=== PATIENT | female | born 2000 | race Caucasian/White ===

== ENCOUNTER → 2019-12-15 16:01 | Outpatient (BNVA) | payer OTHER, SELFPAY | PROVIDERS: Family Provider Family Medicine; PCP Family Medicine; Visit Provider Nurse Practitioner Women's Health | DX: Z12.4 Encounter for screening for malignant neoplasm of cervix (principal); Z30.41 Encounter for surveillance of contraceptive pills; Z32.00 Encounter for pregnancy test, result unknown | CPT/HCPCS: 81025; 88175 ==

== ENCOUNTER → 2020-01-02 13:04 | Outpatient (BNVA) | payer OTHER, SELFPAY | PROVIDERS: Family Provider Family Medicine; PCP Family Medicine; Visit Provider Obstetrics & Gynecology | DX: R10.31 Right lower quadrant pain (principal); Z30.431 Encounter for routine checking of intrauterine contraceptive device | CPT/HCPCS: 76830 ==

== ENCOUNTER 2022-12-19 16:08 | Outpatient (CLI) | payer OTHER, SELFPAY ==
[2022-12-19 16:08] VITALS: BMI 39.9
[2022-12-19 16:23] VITALS: BP 147/81; PULSE 69
[2022-12-19 16:43] VITALS: BP 132/72; PULSE 59
[2022-12-19 16:47] LABS: Nitrazine Paper, PH Negative
== END 2022-12-19 16:58 | disposition home or self-care (01) ==
LOC: OPOB 16:14 → OBGYN 16:15
PROVIDERS: PCP Family Medicine; Visit Provider Family Medicine
DX: O26.899 Other specified pregnancy related conditions, unspecified trimester (principal); Z3A.00 Weeks of gestation of pregnancy not specified; N89.8 Other specified noninflammatory disorders of vagina
CPT/HCPCS: 59025; 83986; 99211

== ENCOUNTER 2023-01-29 04:46 | Outpatient (CLI) | payer OTHER, SELFPAY ==
[2023-01-29] VITALS (19 sets, daily range): BP systolic 137–200; BP diastolic 64–94; PULSE 67–109; RESP 16–18; TEMP 36.3; BMI 43.9
[2023-01-29] MEDS: terbutaline 1 mg/mL INJ 0.25 MG SUBCUT ×2 (05:51→08:04)
[2023-01-29 05:54] LABS: Basophils % 0.4 %; Eosinophils # 0.2 10^3/uL (0.0-0.8); Eosinophils % 3.1 %; Hematocrit 41.1 % (36-47); Lymphocytes # 2.3 10^3/uL (0.8-4.8); Lymphocytes % 28.8 %; Mean Corpuscular Hemoglobin 32.7 pg (27-33); Mean Corpuscular Volume 93.4 fl (85-98); Mean Platelet Volume 12.1 fL (7.4-10.4); Monocytes # 0.8 10^3/uL (0.2-0.9); Neutrophils # 4.47 10^3/uL (1.8-7.7); Neutrophils % 57.2 %; Nucleated Red Blood Cells % 0 %; Platelet Count 182 10^3/cmm (157-399); Red Cell Distribution Width 13.2 % (12.1-15.1); White Blood Count 7.81 10^3/uL (3.29-11.43)
[2023-01-29 06:09] LABS: Alanine Aminotransferase 17 U/L (0-33); Albumin Level 3.7 g/dL (3.5-5.2); Alkaline Phosphatase 80 U/L (35-105); Anion Gap 18.1 (5-19); Aspartate Amino Transferase 18 U/L (0-32); Blood Urea Nitrogen 8 mg/dL (6-20); Calcium 9.7 mg/dL (8.5-10.5); Carbon Dioxide 21 mmol/L (22-29); Chloride 104 mmol/L (98-107); Globulin 3.3 g/dL (1.3-4.6); Glomerular Filtration Rate 122.8 mL/min (90-130); Glucose 85 mg/dL (65-115); Osmolality Calculated 286 mOsm/kg (285-295); Potassium 4.1 mmol/L (3.5-5.1); Sodium 139 mmol/L (136-145); Total Bilirubin 0.2 mg/dL (0.15-1.2)
[2023-01-29 06:14] LABS: Bilirubin Urine Neg (Negative); Blood Urine 3+ (Negative); Glucose Urine UA Norm (Normal); Ketones Urine Negative (Negative); Leukocyte Esterase Urine Trace (Negative); Nitrate Urine Negative (Negative); Protein Urine Neg (Negative); Sulfosalicylic Acid Urine Negative (Negative); Urine Appearance Hazy (CLEAR); Urine Color Yellow (Yellow); Urobilinogen Urine Neg (Negative); pH Urine 8 (5-7)
[2023-01-29 06:15] LABS: Add Urine Culture? No; Add Urine Microscopic? YES; Bacteria Urine 1+ /hpf; RBC Urine 0-4 /hpf (0-2); Squamous Epithelial Cell Urine 15-25 /hpf (0-5)
[2023-01-29 06:22] LABS: Urine Creatinine 72 mg/dL (28-217); Urine Protein Random 19 mg/dL
[2023-01-29 06:24] LABS: UPRO/UCREAT Ratio 0.26 mg/mg CR
[2023-01-29] MEDS: propranolol 20 mg Tablet PO (06:38)
[2023-01-29] MEDS: lactated ringers 1,000 ML 999 ML IV (08:04)
[2023-01-29] MEDS: betamethasone susp 6 mg/mL 1 mL (per mL) 12 MG IM (09:48)
--- NOTE | 2023-01-30 10:34 | PM.OBTRLD ---
OB L&D Triage Visit Information: Date of evaluation: 01/29/23 Comments/Additional reason(s) for visit: Pt at 33w gestation presented c/o contractions starting at about 3 am. She drank a glass of water and rested but they continued and became more painful. No vaginal bleeding. No LOF. She does think she lost her mucus plug. Good movement Evaluation: Baseline heart rate: 140 Variability: Average (6-10) monitor accelerations: Present 15x15 monitor decelerations: None Laboratory results: Laboratory Tests 01/29/23 01/29/23 01/29/23 05:40 05:40 05:55 WBC 7.81 RBC 4.40 Hgb 14.40 Hct 41.1 MCV 93.4 MCH 32.7 MCHC 35.0 RDW 13.2 Plt Count 182 MPV 12.1 H Neut % (Auto) 57.2 Lymph % (Auto) 28.8 [place] % (Auto) 10.0 Eos % (Auto) 3.1 Baso % (Auto) 0.4 Neut # (Auto) 4.47 Lymph # (Auto) 2.3 [place] # (Auto) 0.8 Eos # (Auto) 0.2 Baso # (Auto) 0.0 Nucleated RBC % (a uto) 0 Nucleated RBCs # 0.0 Sodium 139 Potassium 4.1 Chloride 104 Carbon Dioxide 21 L Anion Gap 18.1 BUN 8 Creatinine 0.6 GFR Calculation 122.8 Glucose 85 Calculated Osmolal ity 286 Calcium 9.7 Total Bilirubin 0.2 AST 18 ALT 17 Alkaline Phosphata se 80 Total Protein 7.0 Albumin 3.7 Globulin 3.3 Urine Color Yellow Urine Appearance Hazy A Urine pH 8 H Ur Specific Gravit y 1.010 Urine Protein Neg Urine Glucose (UA) Norm Urine Ketones Negative Urine Blood 3+ H Urine Nitrate Negative Urine Bilirubin Neg Prot Sulfosalicyli c Acd Negative Urine Urobilinogen Neg Ur Leukocyte Falguni ase Trace H Urine RBC 0-4 H Urine WBC 5-10 H Ur Squamous Epith Cells 15-25 H Amorphous Sediment Not Reportable Urine Bacteria 1+ H U Random Total Pro tein Urine Creatinine Protein/Creatinin Ratio 01/29/23 05:55 WBC RBC Hgb Hct MCV MCH MCHC RDW Plt Count MPV Neut % (Auto) Lymph % (Auto) [place] % (Auto) Eos % (Auto) Baso % (Auto) Neut # (Auto) Lymph # (Auto) [place] # (Auto) Eos # (Auto) Baso # (Auto) Nucleated RBC % (a uto) Nucleated RBCs # Sodium Potassium Chloride Carbon Dioxide Anion Gap BUN Creatinine GFR Calculation Glucose Calculated Osmolal ity Calcium Total Bilirubin AST ALT Alkaline Phosphata se Total Protein Albumin Globulin Urine Color Urine Appearance Urine pH Ur Specific Gravit y Urine Protein Urine Glucose (UA) Urine Ketones Urine Blood Urine Nitrate Urine Bilirubin Prot Sulfosalicyli c Acd Urine Urobilinogen Ur Leukocyte Falguni ase Urine RBC Urine WBC Ur Squamous Epith Cells Amorphous Sediment Urine Bacteria U Random Total Pro tein 19 Urine Creatinine 72 Protein/Creatinin Ratio 0.26 Care Additional Care Information: The pt has some intermittent elevated BP's in the severe range. This was usually when she first came in or got up to the bathroom. Pt noted to be visibly anxious and even shaking by the nursing staff. PIH labs drawn and were not indicative of pre-eclampsia. She received 1 dose of terb that significantly reduced contractions for about an hour but then they returned. At that time she was given 1L bolus of fluids IV and another dose of terb. This stopped her contractions and she felt much better. Final Diagnosis Final Diagnosis (1) uterine contractions in third trimester, antepartum: Plan: resolved w terb and fluids. pt was instructed to drink at least 64 oz of water daily and also 24 oz of sports drink. she was given one dose of betamethasone and will return for the other tomorrow Status: Acute Code(s): O47.03 - False labor before 37 completed weeks of gestation, third trimester (2) induced hypertension, antepartum: Plan: at rest pressures are around 140. will hold off on BP medication at this time. her severely high readings resolve quickly and seem to be stress/anxiety related. Status: Acute Code(s): O13.9 - Gestational [-induced] hypertension without significant proteinuria, unspecified trimester Coding Level of Care Code Acute Code for Chg Fwd Diagnoses uterine contractions in third trimester, antepartum O47.03 induced hypertension, antepartum O13.9
== END 2023-01-29 09:40 | disposition home or self-care (01) ==
LOC: OPOB 04:55 → OBGYN 04:56
PROVIDERS: PCP Family Medicine; Visit Provider Family Medicine
DX: O47.03 False labor before 37 completed weeks of gestation, third trimester (principal); O13.9 Gestational [pregnancy-induced] hypertension without significant proteinuria, unspecified trimester; Z3A.37 37 weeks gestation of pregnancy
CPT/HCPCS: 36415; 59025; 80053; 81001; 82570; 84156; 85025; 96372; 99211; J0702; J3105; J7120

== ENCOUNTER 2023-01-30 09:07 | Outpatient (CLI) | payer OTHER, SELFPAY ==
[2023-01-30] MEDS: betamethasone susp 6 mg/mL 1 mL (per mL) 12 MG IM (09:21)
== END 2023-01-30 09:24 | disposition home or self-care (01) ==
PROVIDERS: Absent Provider Family Medicine; PCP Family Medicine; Visit Provider Family Medicine
DX: O26.899 Other specified pregnancy related conditions, unspecified trimester (principal); Z3A.00 Weeks of gestation of pregnancy not specified
CPT/HCPCS: 96372; J0702

== ENCOUNTER 2023-02-04 20:59 | Outpatient (CLI) | payer OTHER, SELFPAY ==
[2023-02-04] VITALS (11 sets, daily range): BP systolic 133–167; BP diastolic 67–90; PULSE 62–75; RESP 15; BMI 44.4
[2023-02-04 22:21] LABS: Basophils % 0.2 %; Eosinophils # 0.2 10^3/uL (0.0-0.8); Hematocrit 37.2 % (36-47); Lymphocytes # 2.1 10^3/uL (0.8-4.8); Lymphocytes % 25.2 %; Mean Corpuscular HGB Conc 34.7 g/dL (30-55); Mean Corpuscular Hemoglobin 32.7 pg (27-33); Mean Corpuscular Volume 94.2 fl (85-98); Mean Platelet Volume 12.4 fL (7.4-10.4); Monocytes # 0.7 10^3/uL (0.2-0.9); Monocytes % 8.5 %; Neutrophils # 5.16 10^3/uL (1.8-7.7); Neutrophils % 63.4 %; Nucleated Red Blood Cells % 0 %; Platelet Count 177 10^3/cmm (157-399); Red Blood Count 3.95 10^6/uL (3.85-5.65); Red Cell Distribution Width 13.3 % (12.1-15.1); White Blood Count 8.14 10^3/uL (3.29-11.43)
[2023-02-04 22:23] LABS: Add Urine Culture? No; Add Urine Microscopic? YES; Amorphous Sediment Urine 1+ /hpf; Bacteria Urine TRACE /hpf; Bilirubin Urine Neg (Negative); Blood Urine Neg (Negative); Glucose Urine UA Norm (Normal); Ketones Urine Negative (Negative); Leukocyte Esterase Urine Negative (Negative); Nitrate Urine Negative (Negative); Protein Urine Trace (Negative); RBC Urine 0-4 /hpf (0-2); Specific Gravity, Urine 1.005 (1.005-1.030); Squamous Epithelial Cell Urine 0-4 /hpf (0-5); Urine Appearance Clear (CLEAR); Urine Color Colorless (Yellow); Urobilinogen Urine Norm (Negative); WBC Urine 0-4 /hpf (0-5); pH Urine 7 (5-7)
[2023-02-04 22:32] LABS: Alanine Aminotransferase 14 U/L (0-33); Albumin Level 3.4 g/dL (3.5-5.2); Alkaline Phosphatase 78 U/L (35-105); Anion Gap 16.1 (5-19); Aspartate Amino Transferase 16 U/L (0-32); Blood Urea Nitrogen 12 mg/dL (6-20); Calcium 9.4 mg/dL (8.5-10.5); Carbon Dioxide 22 mmol/L (22-29); Chloride 105 mmol/L (98-107); Globulin 2.9 g/dL (1.3-4.6); Glomerular Filtration Rate 151.6 mL/min (90-130); Glucose 110 mg/dL (65-115); Osmolality Calculated 288 mOsm/kg (285-295); Potassium 4.1 mmol/L (3.5-5.1); Sodium 139 mmol/L (136-145); Total Bilirubin 0.2 mg/dL (0.15-1.2); Total Protein 6.3 g/dL (6.6-8.7)
[2023-02-04 22:33] LABS: Urine Creatinine 31 mg/dL (28-217)
[2023-02-04 22:38] LABS: Urine Protein Random 31 mg/dL
== END 2023-02-04 23:58 | disposition home or self-care (01) ==
LOC: OPOB 21:00 → OBGYN 21:01
PROVIDERS: PCP Family Medicine; Visit Provider Family Medicine
DX: O16.9 Unspecified maternal hypertension, unspecified trimester (principal); Z3A.00 Weeks of gestation of pregnancy not specified; R10.9 Unspecified abdominal pain
CPT/HCPCS: 36415; 59025; 80053; 81001; 82570; 84156; 84550; 85025; 99211

== ENCOUNTER 2023-02-06 16:31 | Outpatient (CLI) | payer OTHER, SELFPAY ==
[2023-02-06 07:35] LABS: Total Volume, Urine 4600 mL
[2023-02-06 07:38] LABS: Urine Total Protein 22.8 mg/dL (0-150)
[2023-02-06 07:53] LABS: Urine Total Protein 24 Hour 1048.8 mg/24hr (0-150)
[2023-02-06 16:31] VITALS: BMI 44.2
[2023-02-06 16:34] VITALS: RESP 16
[2023-02-06 16:35] VITALS: TEMP 35.8
[2023-02-06 16:46] VITALS: BP 138/83; PULSE 75
[2023-02-06 16:56] VITALS: BP 144/81; PULSE 70
[2023-02-06 17:05] VITALS: RESP 18
== END 2023-02-06 17:07 | disposition home or self-care (01) ==
LOC: OPOB 16:31 → OBGYN 16:33
PROVIDERS: PCP Family Medicine; Visit Provider Family Medicine
DX: O36.8190 Decreased fetal movements, unspecified trimester, not applicable or unspecified (principal); Z3A.00 Weeks of gestation of pregnancy not specified
CPT/HCPCS: 59025; 84156; 99211

== ENCOUNTER 2023-02-10 16:51 | Outpatient (CLI) | payer OTHER, SELFPAY ==
[2023-02-10 17:06] VITALS: BP 141/90; PULSE 72
[2023-02-10 17:18] VITALS: BMI 45.1
[2023-02-10 17:21] VITALS: BP 141/88; PULSE 71
[2023-02-10 17:36] VITALS: BP 143/83; PULSE 74
[2023-02-10 17:51] VITALS: BP 147/89; PULSE 71
[2023-02-10 18:00] VITALS: BP 147/89; PULSE 71; RESP 16; TEMP 36.4
== END 2023-02-10 18:05 | disposition home or self-care (01) ==
LOC: OPOB 16:53 → OBGYN 17:05
PROVIDERS: PCP Family Medicine; Visit Provider Family Medicine
DX: O24.419 Gestational diabetes mellitus in pregnancy, unspecified control (principal); Z3A.00 Weeks of gestation of pregnancy not specified
CPT/HCPCS: 59025

== ENCOUNTER 2023-02-13 16:50 | Outpatient (CLI) | payer OTHER, SELFPAY ==
[2023-02-13] VITALS (7 sets, daily range): BP systolic 153–162; BP diastolic 77–97; PULSE 68–76; BMI 43.6
[2023-02-13 17:32] LABS: Basophils % 0.3 %; Eosinophils # 0.1 10^3/uL (0.0-0.8); Eosinophils % 1.6 %; Hematocrit 36.4 % (36-47); Lymphocytes # 2.2 10^3/uL (0.8-4.8); Lymphocytes % 27.8 %; Mean Corpuscular HGB Conc 34.9 g/dL (30-55); Mean Corpuscular Hemoglobin 32.6 pg (27-33); Mean Corpuscular Volume 93.6 fl (85-98); Mean Platelet Volume 12.5 fL (7.4-10.4); Monocytes # 0.8 10^3/uL (0.2-0.9); Monocytes % 10.4 %; Neutrophils # 4.73 10^3/uL (1.8-7.7); Neutrophils % 59.4 %; Nucleated Red Blood Cells % 0 %; Platelet Count 169 10^3/cmm (157-399); Red Blood Count 3.89 10^6/uL (3.85-5.65); Red Cell Distribution Width 13.3 % (12.1-15.1); White Blood Count 7.96 10^3/uL (3.29-11.43)
[2023-02-13 18:33] LABS: Alanine Aminotransferase 22 U/L (0-33); Albumin Level 3.5 g/dL (3.5-5.2); Alkaline Phosphatase 86 U/L (35-105); Anion Gap 17.5 (5-19); Aspartate Amino Transferase 21 U/L (0-32); Blood Urea Nitrogen 13 mg/dL (6-20); Calcium 9.5 mg/dL (8.5-10.5); Carbon Dioxide 19 mmol/L (22-29); Chloride 106 mmol/L (98-107); Glomerular Filtration Rate 151.6 mL/min (90-130); Glucose 91 mg/dL (65-115); Osmolality Calculated 286 mOsm/kg (285-295); Potassium 4.5 mmol/L (3.5-5.1); Sodium 138 mmol/L (136-145); Total Bilirubin 0.2 mg/dL (0.15-1.2); Total Protein 6.5 g/dL (6.6-8.7); Uric Acid 5.8 mg/dL (2.4-5.7)
== END 2023-02-13 18:40 | disposition home or self-care (01) ==
LOC: OPOB 16:51 → OBGYN 16:52
PROVIDERS: PCP Family Medicine; Visit Provider Family Medicine
DX: O26.899 Other specified pregnancy related conditions, unspecified trimester (principal); Z3A.00 Weeks of gestation of pregnancy not specified
CPT/HCPCS: 36415; 59025; 80053; 84550; 85025; 99211

== ENCOUNTER 2023-02-18 02:30 | Inpatient (IN) | payer OTHER, SELFPAY ==
[2023-02-17] VITALS (39 sets, daily range): BP systolic 130–221; BP diastolic 64–104; PULSE 68–187; RESP 17–18; TEMP 36.7; O2SAT 85–100; BMI 44.1
--- NOTE | 2023-02-17 17:25 | PM.OPHPUD ---
Labor & Delivery H&P Update Date of Procedure: February 17, 2023 Date H&P Performed: 02/18/23 Admission Diagnosis: IUP at 36 weeks 2 days gestation Severe preeclampsia IUGR Other information: This is a 22-year-old G1, P0 at 36 weeks 2 days gestation who was diagnosed with -induced hypertension around 33 weeks gestation. She was given a dose of steroids at 33 weeks gestation due to my suspicion for her progression to preeclampsia. She was diagnosed as preeclamptic the next week with mildly elevated blood pressures and 24hr urine protein 1048. She would spike a severe blood pressure when she was anxious. But this would easily return to normal as she calm down. She has been monitored closely with twice weekly NSTs and once weekly PIH labs. Today she had ultrasound for growth and ESCOBAR. She was found to have IUGR with abdominal circumference measuring less than 2.3 percentile. BPP was 8/8. Umbilical artery Dopplers were elevated greater than the 95th percentile with the RI (0.75) and S/D (3.93). She has also had several severely elevated BPs at rest. Decision was made to proceed with induction for severe preeclampsia. We will obtain updated PIH labs. Her cervix is soft
[2023-02-17] MEDS: miSOPROStol 100 mcg tablet 25 MCG VAGINAL (18:22)
[2023-02-17] MEDS: hyDROXYzine 25 mg Capsule 50 MG PO (18:26)
[2023-02-17] MEDS: hyDRALAzine 20 mg/mL INJ 1 mL 5 MG IVP (18:30)
[2023-02-17 18:47] LABS: Basophils % 0.3 %; Eosinophils # 0.1 10^3/uL (0.0-0.8); Eosinophils % 1.3 %; Hematocrit 40.5 % (36-47); Lymphocytes # 3.3 10^3/uL (0.8-4.8); Lymphocytes % 36.1 %; Mean Corpuscular HGB Conc 35.1 g/dL (30-55); Mean Corpuscular Hemoglobin 32.7 pg (27-33); Mean Corpuscular Volume 93.3 fl (85-98); Mean Platelet Volume 13.2 fL (7.4-10.4); Monocytes # 0.8 10^3/uL (0.2-0.9); Neutrophils # 4.89 10^3/uL (1.8-7.7); Nucleated Red Blood Cells % 0 %; Platelet Count 204 10^3/cmm (157-399); Red Blood Count 4.34 10^6/uL (3.85-5.65); Red Cell Distribution Width 13.1 % (12.1-15.1); White Blood Count 9.24 10^3/uL (3.29-11.43)
[2023-02-17 19:59] LABS: Add Urine Microscopic? YES; Bilirubin Urine Neg (Negative); Blood Urine Neg (Negative); Glucose Urine UA Norm (Normal); Ketones Urine Negative (Negative); Leukocyte Esterase Urine Negative (Negative); Nitrate Urine Negative (Negative); Protein Urine 1+ (Negative); Specific Gravity, Urine 1.015 (1.005-1.030); Urine Appearance Hazy (CLEAR); Urine Color Yellow (Yellow); Urobilinogen Urine Norm (Negative); pH Urine 7 (5-7)
[2023-02-17 20:00] LABS: Slide Review Slide Review Perform
[2023-02-17 20:07] LABS: Alanine Aminotransferase 25 U/L (0-33); Albumin Level 3.9 g/dL (3.5-5.2); Alkaline Phosphatase 108 U/L (35-105); Anion Gap 19.9 (5-19); Aspartate Amino Transferase 25 U/L (0-32); Blood Urea Nitrogen 13 mg/dL (6-20); Calcium 10.1 mg/dL (8.5-10.5); Carbon Dioxide 19 mmol/L (22-29); Chloride 103 mmol/L (98-107); Globulin 3.4 g/dL (1.3-4.6); Glomerular Filtration Rate 151.6 mL/min (90-130); Glucose 72 mg/dL (65-115); Osmolality Calculated 285 mOsm/kg (285-295); Potassium 3.9 mmol/L (3.5-5.1); Sodium 138 mmol/L (136-145); Total Bilirubin 0.2 mg/dL (0.15-1.2); Total Protein 7.3 g/dL (6.6-8.7); Uric Acid 5.8 mg/dL (2.4-5.7)
[2023-02-17 20:13] LABS: Bacteria Urine TRACE /hpf; Mucus Urine 2+ /hpf; RBC Urine RARE /hpf (0-2); Squamous Epithelial Cell Urine 0-4 /hpf (0-5); Transitional Epi Cells Urine RARE /hpf; Urine Creatinine 59 mg/dL (28-217); WBC Urine RARE /hpf (0-5)
[2023-02-17 20:14] LABS: Add Urine Culture? No; Amorphous Sediment Urine 2+ /hpf
[2023-02-17 20:39] LABS: UPRO/UCREAT Ratio 3.47 mg/mg CR; Urine Protein Random 205 mg/dL
[2023-02-17] MEDS: lactated ringers 1,000 ML 999 ML IV (22:01)
[2023-02-17] MEDS: ROPivacaine syringe 100 MG/50 ML SYRINGE 10 MG EPIDURAL (23:05)
--- NOTE | 2023-02-17 23:06 | P.ANESASSM_ITS ---
Pre-Anesthetic Assessment Height/Weight: Height 1.63 m Weight 116.573 kg Temp Pulse Resp BP Pulse Ox O2 Del Method 98.1 F 114 H 17 221/104 98 Room Air 02/17/23 19:43 02/17/23 23:01 02/17/23 17:14 02/17/23 23:01 02/17/23 22:55 02/17/23 17:24 epidural Familial anesthetic complications: none Was Beta Margarita taken within 24 hours: N/A Was Clonidine taken within 24 hours: N/A Social No alcohol and No tobacco Exam alert and oriented x 3 Airway Submandibular: within normal limits Cervical ROM: within normal limits Mallampati: Class III Dentition: full CV/HEM Hypertension (gestational) Anesthetic Plan ASA status: 2 Anesthesia: Anesthesia Evaluation and Regional (specify below) Risk of > 500 ml blood loss (7ml/kg in children): No Medications/Allergies Home Medications Medication Instructions Recorded Confirmed Last Taken Type vit no.95-ferrous 1 tab PO DAILY 12/19/22 12/19/22 02/12/23 18:00 History fumarate 28 mg-folic acid 800 mcg tablet () Allergies Allergy/AdvReac Type Severity Reaction Status Date / Time No Known Allergies Allergy Verified 04/16/22 07:21 Current Medications Generic Name Dose Route Start Last Admin Trade Name Freq PRN Reason Stop Dose Admin Hydralazine HCl 5 mg 02/17/23 17:56 02/17/23 18:30 Hydralazine 20 Mg/Ml Inj 1 Ml IVP 5 mg PRN PRN Administration HYPERTENSION Protocol Hydroxyzine Pamoate 50 mg 02/17/23 17:12 02/17/23 18:26 Hydroxyzine 25 Mg Capsule PO 50 mg QID PRN Administration sleep, agitation or itching Lactated Ringer's 1,000 mls @ 999 mls/hr 02/17/23 21:55 02/17/23 22:01 Lactated Ringers IV 999 mls/hr .Q1H1M PRN Administration See label comments PFSH Anesthesia Medical History (Updated 01/30/23 @ 10:40 by Krista Orozco MD) URI with cough and congestion No pertinent past medical history neghx: htn, thyroid, DM, DVT/PE Contraceptive management PMS (premenstrual syndrome) Surgical History H/O wisdom tooth extraction (~2019) History of appendectomy (~2003) Family History Grandmother Heart disease PATERNAL Father Heart disease Family/Other Heart disease MATERNAL UNCLE Diabetes MATERNAL UNCLE MATERNAL AUNT COUSIN Hypertension MATERNAL AUNT COUSIN Social History Substance/Drug Use: never Female Reproductive History : 1 Data Anesthesia 02/17/23 18:15 02/17/23 18:15 Short CBC 02/17/23 Range/Units 18:15 WBC 9.24 (3.29-11.43) 10^3/uL Hgb 14.20 (11.27-16.99) g/dL Hct 40.5 (36-47) % MCV 93.3 (85-98) fl Plt Count 204 (157-399) 10^3/cmm Neut % (Auto) 53.0 % Neut # (Auto) 4.89 (1.8-7.7) 10^3/uL BMP 02/17/23 18:15 Sodium 138 Potassium 3.9 Chloride 103 Carbon Dioxide 19 L BUN 13 Creatinine 0.5 Glucose 72 Calcium 10.1 Liver Function 02/17/23 Range/Units 18:15 Total Bilirubin 0.2 (0.15-1.2) mg/dL AST 25 (0-32) U/L ALT 25 (0-33) U/L Alkaline Phosphatase 108 H (35-105) U/L Albumin 3.9 (3.5-5.2) g/dL Urine 02/17/23 Range/Units 18:15 Urine Color Yellow (Yellow) Urine Appearance Hazy A (CLEAR) Urine pH 7 (5-7) Ur Specific [place] 1.015 (1.005-1.030) Urine Protein 1+ H (Negative) Urine Glucose (UA) Norm (Normal) Urine Ketones Negative (Negative) Urine Nitrate Negative (Negative) Urine Bilirubin Neg (Negative) Ur Leukocyte Esterase Negative (Negative) Urine RBC Rare (0-2) /hpf Urine WBC Rare (0-5) /hpf Blood Bank 02/17/23 18:15 Blood Type O Positive Rho(D) Type Rh positive Antibody Screen Negative Cardiac Studies: 2 No Data to Display Anesthesia Procedures Epidural Time Out Performed: Yes Consents Signed: Procedure Consent Consent: from patient, risks and benefits reviewed and patient agrees to proceed Lumbar Level: L3-L4 Epidural position: sitting Epidural procedure: sterile prep of area, 1% lidocaine to numb the area, 18 g needle, negative for paresthesia passed, test dose given, 1.5% xylocaine 1:200k epi, 0.2% Ropivacaine bolus ml, placed PCEA, no systemic response, sterile dressing applied, L.U.D. no apparent complications and 0.2% Ropiavacaine @ mls/hr (13) Additional Comments: SUMI at 9, taped at 15 at skin. negative blood/CSF upon aspiration.
--- NOTE | 2023-02-17 23:15 | ANES.PROC ---
Anesthesia Procedures Procedure/Date: 02/17/23 Procedure Narrative: bolus given via epidural 5ml 2%PF lidocaine, 100mcg fentanyl.
[2023-02-18] VITALS (107 sets, daily range): BP systolic 121–193; BP diastolic 58–131; PULSE 75–141; RESP 16–17; TEMP 36.2–36.8; O2SAT 74–100
[2023-02-18] MEDS: hyDRALAzine 20 mg/mL INJ 1 mL 5 MG IVP (00:18)
[2023-02-18] MEDS: hyDROXYzine 25 mg Capsule 50 MG PO (00:18)
[2023-02-18] MEDS: ondansetron 2 mg/ML SDV 2 mL 4 MG IVP ×3 (00:23→19:49)
[2023-02-18] MEDS: acetaminophen 325 mg Tablet 650 MG PO ×3 (00:36→18:09)
[2023-02-18] MEDS: ROPivacaine syringe 100 MG/50 ML SYRINGE 13 MG EPIDURAL ×2 (01:11→02:27)
--- NOTE | 2023-02-18 01:53 | ANES.PROC ---
Anesthesia Procedures Procedure/Date: 02/18/23 Epidural: Time Out Performed: Yes Consents Signed: Procedure Consent Consent: from patient, risks and benefits reviewed and patient agrees to proceed Lumbar Level: L2-L3 Epidural position: sitting Epidural procedure: sterile prep of area, 1% lidocaine to numb the area, 18 g needle, negative for paresthesia passed, test dose given, 1.5% xylocaine 1:200k epi, placed PCEA, no systemic response, sterile dressing applied, L.U.D. no apparent complications and 0.2% Ropiavacaine @ mls/hr (13) Additional Comments: epidural replaced at this time. SUMI at 8, negative blood/CSF upon apsiration. taped at 15 at skin. bolus x2 of 5ml 2%PF lidocaine given, total of 10ml.
[2023-02-18] MEDS: dextrose 5%-lactated ringers 1,000 ML 125 ML IV (02:26)
--- NOTE | 2023-02-18 02:52 | ANES.PROC ---
Anesthesia Procedures Procedure/Date: 02/18/23 Procedure Narrative: epidural replaced again by Dr. Cosme. 100 mcg fentanyl given with start of pump. bolus of 5ml 0.25% bupivicaine given at 0307.
[2023-02-18] MEDS: metoclopramide 5 mg/mL SDV 2 mL 10 MG IV (03:27)
--- NOTE | 2023-02-18 03:57 | PC.NURSE ---
Epidural removed by A Nishant STATION TENDER at 0120. Catheter intact. Patient tolerated well. Epidural removed by A Nishant STATION TENDER at 0225. Catheter intact. Patient tolerated well.
[2023-02-18] MEDS: oxytocin 30 UNIT/500 ML BAG 999 UNIT IV (04:40)
[2023-02-18] MEDS: lidocaine 2% INJ 20 mL INJECTION (05:09)
[2023-02-18] MEDS: hyDRALAzine 20 mg/mL INJ 1 mL 10 MG IVP ×2 (05:16→14:39)
--- NOTE | 2023-02-18 05:28 | PM.DELIVERY ---
Delivery Note: Date of delivery: February 18, 2023 Pre-delivery diagnoses: IUP at 36 weeks 3 days gestation Severe preeclampsia IUGR Procedure: Normal spontaneous vaginal delivery Estimated blood loss (mL): 350 Pre-Delivery Course: The patient had routine care at [facility]. In the third trimester the was complicated by -induced hypertension which then progressed to preeclampsia at 34 weeks gestation. She was being monitored closely with twice weekly NSTs. She would have a brief spike of blood pressure into the severe range when she was noted to be very anxious. At her 36-week visit her blood pressures were more consistently severely elevated and her growth ultrasound revealed IUGR with abdominal circumference less than 2.3 percentile. Decision was made to go ahead and proceed with induction due to progression to severe preeclampsia. labs blood type O+ antibody negative, hepatitis B nonreactive, hepatitis C nonreactive, HIV nonreactive, rubella immune, GC chlamydia negative, RPR nonreactive, UDS negative, she passed her glucose tolerance test, she was GBS negative. Delivery: This is a 22-year-old G1 now P1 who was admitted at 36 weeks 2 days gestation for severe preeclampsia with IUGR. She had intermittent severe blood pressures, excellent urine output, and no neurological symptoms so I decided not to start her on magnesium. Her cervix was 1 cm very soft, asymmetrically thick so she was given 1 dose of Cytotec. She had spontaneous rupture of membranes with clear fluid. There was a significant amount of difficulty getting her comfortable with epidural. She underwent 3 separate complete epidurals and was just starting to get some relief when she was complete and ready to push. She only had to push through a couple contractions when she had a rocket like delivery of a viable female infant. The cord was thin and avulsed upon delivery but I was able to grab the cord quickly and placed the on mother's chest. The cord was then clamped. The was then suctioned and dried. Apgars were 8 and 9. Weight 2170 g, 4 pounds 13 ounces. The placenta was delivered grossly intact with a very asymmetric cord insertion right on the periphery. I am not sure I would completely call and velamentous but it was very close. The placenta was quite small but otherwise normal to inspection. There was a second-degree perineal laceration that was sutured using 3-0 chromic. Mother and were doing well after delivery History History History 0 Term Miscarriages/Ectopic Living Children A&P Assessment and plan (1) Severe pre-eclampsia: Close monitoring of blood pressures and urine output (2) (normal spontaneous vaginal delivery): Routine care Coding Level of Care Code Acute Code for Chg Fwd Diagnoses Severe pre-eclampsia O14.10 (normal spontaneous vaginal delivery) O80
[2023-02-18] MEDS: prenatal vitamin Capsule 1 CAP PO (08:04)
[2023-02-18] MEDS: ibuprofen 800 mg tablet PO ×3 (08:04→21:03)
[2023-02-18] MEDS: docusate sodium 100 mg Capsule PO ×2 (08:04→18:09)
[2023-02-18] MEDS: dextrose 5%-lactated ringers 1,000 ML 75 ML IV ×2 (10:24→23:51)
[2023-02-18] MEDS: ketorolac 30 mg/mL INJ IVP (10:25)
[2023-02-18] MEDS: magnesium sulfate premix 4 GM/100 ML PREMIX IV (10:33)
[2023-02-18] MEDS: magnesium sulfate premix 20 GM/500 ML BAG IV ×2 (10:51→19:48)
[2023-02-18] MEDS: NIFEdipine ER (24 hr) 30 mg Tablet PO ×2 (12:49→14:39)
--- NOTE | 2023-02-18 14:11 | ANE.PACU2 ---
Inpatient post-anesthesia follow up: Airway intact: Yes Vital signs: Temperature 98.2 F Pulse Rate 108 Respiratory Rate 16 Blood Pressure 175/96 Pulse Oximetry 93 Oxygen Delivery Me thod Room Air Oxygen Flow Rate Fraction of Inspir ed Oxygen Hydration adequate: Yes Nausea and vomiting: No Pain level: 2 Mental status: Baseline Additional Comments: Anes start 02/17/23 8918 Anes end 02/18/23 9254
[2023-02-18 18:25] LABS: Hematocrit 33.3 % (36-47); Mean Corpuscular HGB Conc 34.2 g/dL (30-55); Mean Corpuscular Hemoglobin 32.7 pg (27-33); Mean Corpuscular Volume 95.4 fl (85-98); Mean Platelet Volume 12.7 fL (7.4-10.4); Platelet Count 189 10^3/cmm (157-399); Red Blood Count 3.49 10^6/uL (3.85-5.65); Red Cell Distribution Width 13.7 % (12.1-15.1); White Blood Count 12.86 10^3/uL (3.29-11.43)
[2023-02-19] VITALS (15 sets, daily range): BP systolic 109–147; BP diastolic 55–82; PULSE 76–111; RESP 16–18; TEMP 35.9–37; O2SAT 98
[2023-02-19] MEDS: acetaminophen 325 mg Tablet 650 MG PO ×2 (04:15→23:22)
[2023-02-19] MEDS: magnesium sulfate premix 20 GM/500 ML BAG IV (06:24)
[2023-02-19] MEDS: NIFEdipine ER (24 hr) 30 mg Tablet PO (08:14)
[2023-02-19] MEDS: docusate sodium 100 mg Capsule PO ×2 (08:14→18:31)
[2023-02-19] MEDS: ibuprofen 800 mg tablet PO ×3 (08:14→20:14)
[2023-02-19] MEDS: prenatal vitamin Capsule 1 CAP PO (08:14)
--- NOTE | 2023-02-19 16:23 | P.PN_ITS ---
Subjective 2 Subjective: She has been ambulating, just took a shower, still urinating well, bleeding is about average. on. Vitals/I&O/Wt Last Vital Signs Temp 98.1 F 02/19/23 08:13 Pulse 90 02/19/23 12:29 Resp 18 02/19/23 10:00 BP 127/71 02/19/23 12:29 Pulse Ox 93 02/18/23 13:04 O2 Del Method Room Air 02/17/23 17:24 02/19/23 02/19/23 02/19/23 06:59 14:59 22:59 Intake Total 3200 / 5497.5 1053.75 / 1053.75 1183 / 2236.75 Output Total 3310 / 6435 1275 / 1275 125 / 1400 Balance -110 / -937.5 -221.25 / -221.25 1058 / 836.75 Physical Exam 2 Narrative: Alert and oriented walking around the room, heart regular rate and rhythm, lungs clear to auscultation bilaterally, abdomen is soft and nontender, extremities have 2+ edema but no calf tenderness Urinary Catheter Management: López: Cath Placed During This Visit: yes, but has since been removed by the nurse Reason for Continuing Indwelling Catheter: Decision to DC Catheter Urinary Catheter Date of Insertion: 02/18/23 Urinary Catheter Time of Insertion: 10:45 Date Urinary Catheter Removed: 02/19/23 Time Urinary Catheter Discontinued: 11:20 Data 02/18/23 17:10 02/17/23 18:15 A&P Assessment and plan (1) Severe pre-eclampsia: Her magnesium was discontinued this morning. The patient diuresed over 7 L overnight. Her magnesium was discontinued. Her blood pressures have been well-controlled but this may still be an effect from the Procardia XL she received yesterday afternoon. (2) (normal spontaneous vaginal delivery): Routine care routine care Attestations 2 Medical Necessity Statement*: Severe preeclampsia Coding Level of Care Code Acute Code for Chg Fwd Diagnoses Severe pre-eclampsia O14.10 (normal spontaneous vaginal delivery) O80
[2023-02-19] MEDS: ondansetron 2 mg/ML SDV 2 mL 4 MG IVP (20:13)
[2023-02-20] VITALS (9 sets, daily range): BP systolic 137–162; BP diastolic 74–87; PULSE 75–91; RESP 16; TEMP 36.7–37.3; O2SAT 97–98
[2023-02-20] MEDS: acetaminophen 325 mg Tablet 650 MG PO (06:17)
[2023-02-20] MEDS: NIFEdipine ER (24 hr) 30 mg Tablet PO (09:19)
[2023-02-20] MEDS: ibuprofen 800 mg tablet PO ×3 (09:19→21:25)
[2023-02-20] MEDS: docusate sodium 100 mg Capsule PO ×2 (09:19→18:05)
[2023-02-20] MEDS: prenatal vitamin Capsule 1 CAP PO (09:19)
--- NOTE | 2023-02-20 19:03 | PM.DCS ---
Discharge Providers Date of Admission: 02/18/23 02:30 Date of Discharge: February 20, 2023 Attending Provider at Admission: Krista Orozco MD Attending Provider at Discharge: Krista Orozco MD Primary Care Provider: Levar Martinez MD Diagnoses at Discharge Discharge Diagnosis (1) Severe pre-eclampsia: Status: Acute (2) (normal spontaneous vaginal delivery): Status: Acute Reason for Visit Reason for Visit: NST Hospital Course Hospital Course This is a 22-year-old G1 now P1 who was admitted at 36 weeks 2 days gestation for induction secondary to severe preeclampsia and IUGR. She had a normal spontaneous vaginal delivery of a viable female weight 4 pounds 13 ounces, Apgars 8 and 9. Mother had a rare severe blood pressure and no neurological symptoms so during the labor process she was not started on magnesium. After delivery her blood pressures consistently remained severely elevated so she was started on magnesium and kept on it for approximately 24 hours. During that time she diuresed 7 L of fluid. Her magnesium was discontinued and that was over 24 hours ago. She has been ambulating, tolerating a regular diet, has average vaginal bleeding and is comfortable with discharge home. She has only had 2 elevated blood pressures on Procardia XL 30 mg. I will be sending her home on 60 mg XL. Physical Exam Narrative: Alert and oriented, sitting up feeding baby, heart regular rate and rhythm, lungs clear to auscultation bilaterally, abdomen is soft and nontender, fundus is firm, extremities have 2+ edema but no calf tenderness. Urinary Catheter Management: López: Cath Placed During This Visit: yes, but has since been removed by the nurse Reason for Continuing Indwelling Catheter: Decision to DC Catheter Urinary Catheter Date of Insertion: 02/18/23 Urinary Catheter Time of Insertion: 10:45 Date Urinary Catheter Removed: 02/19/23 Time Urinary Catheter Discontinued: 11:20 Discharge Data Studies Completed and Pending Laboratory Results WBC 12.86 10^3/uL (3.29-11.43) H 02/18/23 17:10 RBC 3.49 10^6/uL (3.85-5.65) L 02/18/23 17:10 Hgb 11.40 g/dL (11.27-16.99) 02/18/23 17:10 Hct 33.3 % (36-47) L 02/18/23 17:10 MCV 95.4 fl (85-98) 02/18/23 17:10 MCH 32.7 pg (27-33) 02/18/23 17:10 MCHC 34.2 g/dL (30-55) 02/18/23 17:10 RDW 13.7 % (12.1-15.1) 02/18/23 17:10 Plt Count 189 10^3/cmm (157-399) 02/18/23 17:10 MPV 12.7 fL (7.4-10.4) H 02/18/23 17:10 Neut % (Auto) 53.0 % 02/17/23 18:15 Lymph % (Auto) 36.1 % 02/17/23 18:15 [place] % (Auto) 9.0 % 02/17/23 18:15 Eos % (Auto) 1.3 % 02/17/23 18:15 Baso % (Auto) 0.3 % 02/17/23 18:15 Neut # (Auto) 4.89 10^3/uL (1.8-7.7) 02/17/23 18:15 Lymph # (Auto) 3.3 10^3/uL (0.8-4.8) 02/17/23 18:15 [place] # (Auto) 0.8 10^3/uL (0.2-0.9) 02/17/23 18:15 Eos # (Auto) 0.1 10^3/uL (0.0-0.8) 02/17/23 18:15 Baso # (Auto) 0.0 10^3/uL (0.0-0.1) 02/17/23 18:15 Nucleated RBC % (auto) 0 % 02/17/23 18:15 Nucleated RBCs # 0.0 /100WBC 02/17/23 18:15 Sodium 138 mmol/L (136-145) 02/17/23 18:15 Potassium 3.9 mmol/L (3.5-5.1) 02/17/23 18:15 Chloride 103 mmol/L (98-107) 02/17/23 18:15 Carbon Dioxide 19 mmol/L (22-29) L 02/17/23 18:15 Anion Gap 19.9 (5-19) H 02/17/23 18:15 BUN 13 mg/dL (6-20) 02/17/23 18:15 Creatinine 0.5 mg/dL (0.5-0.9) 02/17/23 18:15 GFR Calculation 151.6 mL/min (90-130) H 02/17/23 18:15 Glucose 72 mg/dL (65-115) 02/17/23 18:15 Calculated Osmolality 285 mOsm/kg (285-295) 02/17/23 18:15 Uric Acid 5.8 mg/dL (2.4-5.7) H 02/17/23 18:15 Calcium 10.1 mg/dL (8.5-10.5) 02/17/23 18:15 Total Bilirubin 0.2 mg/dL (0.15-1.2) 02/17/23 18:15 AST 25 U/L (0-32) 02/17/23 18:15 ALT 25 U/L (0-33) 02/17/23 18:15 Alkaline Phosphatase 108 U/L (35-105) H 02/17/23 18:15 Total Protein 7.3 g/dL (6.6-8.7) 02/17/23 18:15 Albumin 3.9 g/dL (3.5-5.2) 02/17/23 18:15 Globulin 3.4 g/dL (1.3-4.6) 02/17/23 18:15 Urine Color Yellow (Yellow) 02/17/23 18:15 Urine Appearance Hazy (CLEAR) A 02/17/23 18:15 Urine pH 7 (5-7) 02/17/23 18:15 Ur Specific [place] 1.015 (1.005-1.030) 02/17/23 18:15 Urine Protein 1+ (Negative) H 02/17/23 18:15 Urine Glucose (UA) Norm (Normal) 02/17/23 18:15 Urine Ketones Negative (Negative) 02/17/23 18:15 Urine Blood Neg (Negative) 02/17/23 18:15 Urine Nitrate Negative (Negative) 02/17/23 18:15 Urine Bilirubin Neg (Negative) 02/17/23 18:15 Urine Urobilinogen Norm mg/dL (Negative) 02/17/23 18:15 Ur Leukocyte Esterase Negative (Negative) 02/17/23 18:15 Urine RBC Rare /hpf (0-2) 02/17/23 18:15 Urine WBC Rare /hpf (0-5) 02/17/23 18:15 Ur Squamous Epith Cells 0-4 /hpf (0-5) H 02/17/23 18:15 Ur Transition Epith Cell Rare /hpf 02/17/23 18:15 Amorphous Sediment 2+ /hpf 02/17/23 18:15 Urine Bacteria Trace /hpf (NONE) 02/17/23 18:15 Urine Mucus 2+ /hpf 02/17/23 18:15 U Random Total Protein 205 mg/dL 02/17/23 18:15 Urine Creatinine 59 mg/dL (28-217) 02/17/23 18:15 Protein/Creatinin Ratio 3.47 mg/mg CR 02/17/23 18:15 Blood Type O Positive 02/17/23 18:15 Rho(D) Type Rh positive 02/17/23 18:15 Antibody Screen Negative 02/17/23 18:15 Vitals Last Vital Signs Temp 98.1 F 02/20/23 15:39 Pulse 81 02/20/23 16:02 Resp 16 02/20/23 04:00 BP 138/76 02/20/23 16:02 Pulse Ox 98 02/20/23 04:00 O2 Del Method Room Air 02/20/23 04:00 Discharge Plan Discharge Patient Disposition: Home Condition: Stable Prescriptions: New nifedipine 30 mg Tablet Extended Release 24hr 60 mg PO DAILY 30 Days Qty: 30 1RF Continued PNV cmb#95-ferrous fumarate-FA [] 28 mg iron- 800 mcg Tablet 1 tab PO DAILY Discharge Orders: Discharge Order (Routine); Ordered 02/20/23 Ordered By: Krista Orozco Referrals: Krista Orozco MD [Physician] - 1 week (and 1 month) Discharge Diet: Usual diet Discharge Activity: Limit activity as instructed Patient Instructions: Opioid Safety Discharge Attestations Time Spent in Discharge Care*: less than 30 min Quality Metrics Clinical Quality Measures [ No reported AMI, CVA or VTE this stay] Coding Level of Care Code Acute Code for Chg Fwd Diagnoses Severe pre-eclampsia O14.10 (normal spontaneous vaginal delivery) O80
== END 2023-02-20 21:35 | disposition home or self-care (01) | DRG 807 ==
LOC: OPOB 02:31 → OBGYN 02:31
PROVIDERS: Admitting Provider Family Medicine; PCP Family Medicine; Visit Provider Family Medicine
DX: O14.14 Severe pre-eclampsia complicating childbirth (principal); Z37.0 Single live birth; Z3A.36 36 weeks gestation of pregnancy; O36.5930 Maternal care for other known or suspected poor fetal growth, third trimester, not applicable or unspecified; O70.1 Second degree perineal laceration during delivery
CPT/HCPCS: 36415; 51702; 59025; 59409; 80053; 81001; 82570; 84156; 84550; 85025; 85027; 86850; 86900; 96374; 96376; 98960; 99211; J0360; J1885; J2405; J2590; J2765; J2795; J3010; J3475; J3490; J7120; J7121

== ENCOUNTER 2024-06-14 02:33 | Emergency (ER) | payer OTHER, SELFPAY ==
[2024-06-14 02:38] VITALS: BP 105/68; PULSE 81; RESP 18; TEMP 36.7; O2SAT 100; BMI 38.4
--- NOTE | 2024-06-14 02:40 | ECG_ITS ---
Pocket Change Card Test Date: 2024-06-14 Pat Name: Kortney Springer Department: Room: Gender: Female Logistics Clerk: : 2000 Requested By: Theresa Boo Order Number: [id number] Bin MD: Measurements Intervals [place] Rate: 101 P: 57 DC: 138 QRS: 66 QRSD: 101 T: -34 QT: 326 QTc: 424 Interpretive Statements SINUS TACHYCARDIA LEFT ATRIAL ENLARGEMENT [-0.15mV P-WAVE IN V1/V2] ST DEVIATION AND MODERATE T-WAVE ABNORMALITY, CONSIDER ANTEROLATERAL ISCHEMIA [-0.1+ mV T-WAVE IN V3-V6] ST DEVIATION AND MODERATE T-WAVE ABNORMALITY, CONSIDER INFERIOR ISCHEMIA [-0.1+ mV T-WAVE IN II/aVF] No previous ECG available for comparison [email or web address]
--- NOTE | 2024-06-14 02:41 | W.ED.CHESTPA ---
HPI - Chest Pain General: Chief Complaint: Chest Pain Stated Complaint: N\Chest Pains Time Seen by Provider: 06/14/24 02:35 History of Present Illness: This is a healthy 24-year-old female presents emergency room with chest pain. Says this woke her up from sleep. She describes a left chest pain that radiates into her back. She has had some nausea. She was started on Lexapro yesterday. No lower extremity swelling. No calf pain. No abdominal pain. Related Data Home Medications ?Medication ?Instructions ?Recorded ?Confirmed vit no.95-ferrous 1 tab PO DAILY 12/19/22 12/19/22 fumarate 28 mg-folic acid 800 mcg tablet () Previous Rx's ?Medication ?Instructions ?Recorded nifedipine 30 mg tablet,extended 60 mg (2 x 30 mg) PO DAILY 30 days 02/20/23 release 24 hr #30 tabs cefdinir 300 mg capsule 300 mg PO BID 5 days #10 caps 06/14/24 Allergies Allergy/AdvReac Type Severity Reaction Status Date / Time No Known Allergies Allergy Verified 04/16/22 07:21 Review of Systems Narrative: Constitutional symptoms: Negative except as documented in HPI. Skin symptoms: Negative except as documented in HPI. Eye symptoms: Negative except as documented in HPI. ENMT symptoms: Negative except as documented in HPI. Respiratory symptoms: Negative except as documented in HPI. Cardiovascular symptoms: Negative except as documented in HPI. Gastrointestinal symptoms: Negative except as documented in HPI. Genitourinary symptoms: Negative except as documented in HPI. Musculoskeletal symptoms: Negative except as documented in HPI. Neurologic symptoms: Negative except as documented in HPI. Psychiatric symptoms: Negative except as documented in HPI. Endocrine symptoms: Negative except as documented in HPI. PFS ED PFSH: Medical History (Updated 06/14/24 @ 03:50 by Theresa Hatch MD) URI with cough and congestion No pertinent past medical history neghx: htn, thyroid, DM, DVT/PE Contraceptive management PMS (premenstrual syndrome) Surgical History H/O wisdom tooth extraction (~2018) History of appendectomy (~2003) Family History Grandmother Heart disease PATERNAL Father Heart disease Family/Other Heart disease MATERNAL UNCLE Diabetes MATERNAL UNCLE MATERNAL AUNT COUSIN Hypertension MATERNAL AUNT COUSIN Social History Substance/Drug Use: never Female Reproductive History: Date of last menstrual period: 06/01/24 Physical Exam Narrative: EXAM NARRATIVE: General: Alert, no acute distress. Skin: Warm, dry. Head: Normocephalic, atraumatic. Neck: Supple, trachea midline. Eye: Extraocular movements are intact. Ears, nose, mouth and throat: mucosa moist. Cardiovascular: Regular, Normal peripheral perfusion. Respiratory: Lungs are clear to auscultation, respirations are non-labored, breath sounds are equal, Symmetrical chest wall expansion. Gastrointestinal: Soft, Nontender, Non distended Musculoskeletal: Normal ROM, no deformity. Neurological: Alert and oriented, No focal neurological deficit observed. Psychiatric: Cooperative, appropriate mood & affect. Course Vital Signs: Vital signs: Vital Signs Temperature 98.0 F 06/14/24 02:38 Pulse Rate 69 06/14/24 03:11 Respiratory Rate 18 06/14/24 03:11 Blood Pressure 130/61 06/14/24 03:11 Pulse Oximetry 99 06/14/24 03:11 Oxygen Delivery Me thod Room Air 06/14/24 03:11 MDM - Chest Pain Medical Decision Making Differential diagnosis for patient with chest pain includes but is not limited to and based on the above HPI, review of systems and physical exam: Pneumonia. unstable angina. angina. Acute coronary syndrome / MD. Pulmonary embolism. Costochondritis / musculoskeletal. Pleurisy. Pericarditis. Esophageal spasm. Pancreatis. Cholecystitis. Orders placed to evaluate differential diagnosis based on the above differential, HPI and physical exam EKG: Time 2:38 AM. Rate 101. Sinus tachycardia. nonspecific ST changes, no ectopy, normal NH & QRS intervals, This was reviewed and interpreted by myself the ER physician at 2:43 AM. Lab Review: Laboratory results were reviewed and interpreted by myself the emergency room physician. No leukocytosis. No anemia. No renal failure. Patient does have a significant urinary tract infection with 21-50 whites and 4+ bacteria. I reviewed the patient's medical record. Reexamination: Patient remained stable. No increased work of breathing. No altered mental status. No focal motor deficits. Assessment and plan: Urinary tract infection Noncardiac chest pain ? IV Zofran and IV Rocephin in the emergency room - Discharged home - Discussed plan with patient. Answered any questions. - Evaluation and treatment of this problem were appropriate in the emergency setting. Lab Data 06/14/24 03:11 06/14/24 03:11 Laboratory Results WBC 9.61 10^3/uL (3.29-11.43) 06/14/24 03:11 RBC 5.11 10^6/uL (3.85-5.65) 06/14/24 03:11 Hgb 14.90 g/dL (11.27-16.99) 06/14/24 03:11 Hct 43.2 % (36-47) 06/14/24 03:11 MCV 84.5 fl (85-98) L 06/14/24 03:11 MCH 29.2 pg (27-33) 06/14/24 03:11 MCHC 34.5 g/dL (30-55) 06/14/24 03:11 RDW 13.2 % (12.1-15.1) 06/14/24 03:11 Plt Count 290 10^3/cmm (157-399) 06/14/24 03:11 MPV 10.8 fL (7.4-10.4) H 06/14/24 03:11 Neut % (Auto) 45.0 % 06/14/24 03:11 Lymph % (Auto) 43.1 % 06/14/24 03:11 Centre % (Auto) 8.3 % 06/14/24 03:11 Eos % (Auto) 2.9 % 06/14/24 03:11 Baso % (Auto) 0.5 % 06/14/24 03:11 Neut # (Auto) 4.32 10^3/uL (1.8-7.7) 06/14/24 03:11 Lymph # (Auto) 4.1 10^3/uL (0.8-4.8) 06/14/24 03:11 Centre # (Auto) 0.8 10^3/uL (0.2-0.9) 06/14/24 03:11 Eos # (Auto) 0.3 10^3/uL (0.0-0.8) 06/14/24 03:11 Baso # (Auto) 0.1 10^3/uL (0.0-0.1) 06/14/24 03:11 Nucleated RBC % (auto) 0 % 06/14/24 03:11 Nucleated RBCs # 0.0 /100WBC 06/14/24 03:11 D-Dimer <= 0.27 ug/mLFEU (0-0.59) 06/14/24 03:11 Sodium 138 mmol/L (136-145) 06/14/24 03:11 Potassium 3.5 mmol/L (3.5-5.1) 06/14/24 03:11 Chloride 104 mmol/L (98-107) 06/14/24 03:11 Carbon Dioxide 20 mmol/L (22-29) L 06/14/24 03:11 Anion Gap 17.5 (5-19) 06/14/24 03:11 BUN 15 mg/dL (6-20) 06/14/24 03:11 Creatinine 0.7 mg/dL (0.5-0.9) 06/14/24 03:11 GFR Calculation 101.1 mL/min (90-130) 06/14/24 03:11 Glucose 103 mg/dL (65-115) 06/14/24 03:11 Calculated Osmolality 287 mOsm/kg (285-295) 06/14/24 03:11 Calcium 9.2 mg/dL (8.5-10.5) 06/14/24 03:11 Total Bilirubin 0.2 mg/dL (0.15-1.2) 06/14/24 03:11 AST 12 U/L (0-32) 06/14/24 03:11 ALT 13 U/L (0-33) 06/14/24 03:11 Alkaline Phosphatase 52 U/L (35-105) 06/14/24 03:11 Troponin T Baseline < 6 ng/L (0-10) 06/14/24 03:11 C-Reactive Protein 3.1 mg/L (0.0-4.9) 06/14/24 03:11 Total Protein 7.1 g/dL (6.6-8.7) 06/14/24 03:11 Albumin 4.2 g/dL (3.5-5.2) 06/14/24 03:11 Globulin 2.9 g/dL (1.3-4.6) 06/14/24 03:11 HCG, Qual Negative (Negative) 06/14/24 03:11 Urine Color Yellow (Yellow) 06/14/24 02:51 Urine Appearance Cloudy (CLEAR) A 06/14/24 02:51 Urine pH 5 (5-7) 06/14/24 02:51 Ur Specific [place] 1.030 (1.005-1.030) 06/14/24 02:51 Urine Protein Trace (Negative) H 06/14/24 02:51 Urine Glucose (UA) Norm (Normal) 06/14/24 02:51 Urine Ketones Negative (Negative) 06/14/24 02:51 Urine Blood 2+ (Negative) A 06/14/24 02:51 Urine Nitrate Negative (Negative) 06/14/24 02:51 Urine Bilirubin Neg (Negative) 06/14/24 02:51 Urine Urobilinogen Neg mg/dL (Negative) 06/14/24 02:51 Ur Leukocyte Esterase 2+ (Negative) A 06/14/24 02:51 Urine RBC 21-50 /hpf (0-2) H 06/14/24 02:51 Urine WBC 21-50 /hpf (0-5) H 06/14/24 02:51 Ur Squamous Epith Cells 11-20 /hpf (0-5) H 06/14/24 02:51 Amorphous Sediment Not Reportable 06/14/24 02:51 Urine Bacteria 4+ /hpf (NONE) H 06/14/24 02:51 Hyaline Casts 4.11 /lpf 06/14/24 02:51 Influenza A (PCR) Negative (Negative) 06/14/24 02:51 Influenza Type B (PCR) Negative (Negative) 06/14/24 02:51 RSV (PCR) Negative (Negative) 06/14/24 02:51 SARS-CoV-2 (PCR) Negative (Negative) 06/14/24 02:51 No radiology studies performed this visit Discharge Plan Discharge Patient Disposition: Home Clinical Impression: Urinary tract infection, Non-cardiac chest pain Condition: Stable Prescriptions: New cefdinir 300 mg capsule 300 mg PO BID 5 Days Qty: 10 0RF No Action PNV cmb#95-ferrous fumarate-FA [] 28 mg iron- 800 mcg Tablet 1 tab PO DAILY nifedipine 30 mg Tablet Extended Release 24hr 60 mg PO DAILY 30 Days Qty: 30 1RF Discharge Orders: Discharge ED (Routine); Ordered 06/14/24 Ordered By: Theresa Hatch Referrals: Levar Martinez MD [Physician] - Discharge Diet: Usual diet Discharge Activity: Increase activity as tolerated Patient Instructions: Opioid Safety, Pain Management Activity Restrictions/Additional Instructions: Thank you for choosing [facility] for your healthcare needs today. Please realize this is an emergency room and that we are providing you with a medical screening exam and this may not be complete and all inclusive of all the testing and or work up that you may need to determine your ailment or severity of your illness. You have been screened and evaluated and felt safe for discharge. Health conditions do change or evolve sometimes and as such it is important that you follow up with your Primary Doctor to be re checked, 3-5 days is a general good time frame for follow up. You are always welcome to return to the ED for re assessment if your symptoms are worsening or you have new concerns Print Language: Macedonian Coding Level of Care Code ED Director Of Broadcast for Christophe Mcgregor
[2024-06-14 03:11] VITALS: BP 130/61; PULSE 69; RESP 18; O2SAT 99
[2024-06-14 03:15] LABS: Basophils # 0.1 10^3/uL (0.0-0.1); Basophils % 0.5 %; Eosinophils # 0.3 10^3/uL (0.0-0.8); Eosinophils % 2.9 %; Hematocrit 43.2 % (36-47); Lymphocytes # 4.1 10^3/uL (0.8-4.8); Lymphocytes % 43.1 %; Mean Corpuscular HGB Conc 34.5 g/dL (30-55); Mean Corpuscular Hemoglobin 29.2 pg (27-33); Mean Corpuscular Volume 84.5 fl (85-98); Mean Platelet Volume 10.8 fL (7.4-10.4); Monocytes # 0.8 10^3/uL (0.2-0.9); Monocytes % 8.3 %; Neutrophils # 4.32 10^3/uL (1.8-7.7); Nucleated Red Blood Cells % 0 %; Platelet Count 290 10^3/cmm (157-399); Red Blood Count 5.11 10^6/uL (3.85-5.65); Red Cell Distribution Width 13.2 % (12.1-15.1); White Blood Count 9.61 10^3/uL (3.29-11.43)
[2024-06-14 03:16] LABS: Bacteria Urine 4+ /hpf; Hyaline Casts Urine 4.11 /lpf; RBC Urine 21-50 /hpf (0-2); WBC Urine 21-50 /hpf (0-5)
[2024-06-14 03:27] LABS: Add Urine Culture? No; Bilirubin Urine Neg (Negative); Blood Urine 2+ (Negative); Glucose Urine UA Norm (Normal); Ketones Urine Negative (Negative); Leukocyte Esterase Urine 2+ (Negative); Nitrate Urine Negative (Negative); Protein Urine Trace (Negative); UA Slide Review UA Slide Review Perf; Urine Appearance Cloudy (CLEAR); Urine Color Yellow (Yellow); Urobilinogen Urine Neg (Negative); pH Urine 5 (5-7)
[2024-06-14 03:28] LABS: HCG, Serum Qual Negative (Negative)
[2024-06-14] MEDS: ondansetron 2 mg/ML SDV 2 mL 4 MG IVP (03:29)
[2024-06-14 03:31] LABS: D Dimer <= 0.27 ug/mLFEU (0-0.59)
[2024-06-14 03:33] LABS: Troponin(5th) Baseline < 6 ng/L (0-10)
[2024-06-14 03:35] LABS: Alanine Aminotransferase 13 U/L (0-33); Albumin Level 4.2 g/dL (3.5-5.2); Alkaline Phosphatase 52 U/L (35-105); Anion Gap 17.5 (5-19); Aspartate Amino Transferase 12 U/L (0-32); Blood Urea Nitrogen 15 mg/dL (6-20); C Reactive Protein 3.1 mg/L (0.0-4.9); Calcium 9.2 mg/dL (8.5-10.5); Carbon Dioxide 20 mmol/L (22-29); Chloride 104 mmol/L (98-107); Creatinine Clr Calc Pharmacy 141.2394; Globulin 2.9 g/dL (1.3-4.6); Glomerular Filtration Rate 101.1 mL/min (90-130); Glucose 103 mg/dL (65-115); Osmolality Calculated 287 mOsm/kg (285-295); Potassium 3.5 mmol/L (3.5-5.1); Sodium 138 mmol/L (136-145); Total Bilirubin 0.2 mg/dL (0.15-1.2); Total Protein 7.1 g/dL (6.6-8.7)
[2024-06-14 03:37] LABS: Influenza A NEGATIVE (Negative); Influenza B NEGATIVE (Negative); Respiratory Syncytial Virus Ce NEGATIVE (Negative); SARS-CoV-2 PCR NEGATIVE (Negative)
[2024-06-14] MEDS: cefTRIAXone 1,000 mg SDV 1000 MG IVP (03:59)
[2024-06-14 04:20] VITALS: BP 129/78; PULSE 65; O2SAT 99
--- NOTE | 2024-06-14 04:40 | ECG_ITS ---
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
== END 2024-06-14 04:22 | disposition home or self-care (01) ==
PROVIDERS: Emergency Provider Emergency Medicine; PCP Family Medicine
DX: N39.0 Urinary tract infection, site not specified (principal); R07.89 Other chest pain; Z11.52 Encounter for screening for COVID-19
CPT/HCPCS: 36415; 80053; 81001; 84484; 84703; 85025; 85378; 86140; 87637; 93005; 96374; 96375; 99285; J0696; J2405